=== PATIENT | male | born 1980 | race Caucasian/White ===

== ENCOUNTER 2021-02-13 06:33 | Emergency (ER) | payer SELFPAY ==
[2021-02-13 06:36] VITALS: BP 135/96; PULSE 103; RESP 20; TEMP 37; O2SAT 96; BMI 34.0
--- NOTE | 2021-02-13 06:44 | ECG_ITS ---
APPROVED REPORT Exam: Resting ECG HR:93 bpm ECG Measurements Heart Rate 93 AXES FL 106 P -3 QRSd 88 QRS 75 QT 348 T 5 QTc 432 Conclusion Sinus rhythm with short FL Otherwise normal ECG Electronically signed by : Guilherme Estevez MD 02/15/2021 08:47:23
[2021-02-13 06:50] VITALS: PULSE 94
--- NOTE | 2021-02-13 06:53 | XR_ITS ---
PROCEDURE: XR CHEST 2V CLINICAL HISTORY: COugh, SOA COMPARISON: CR CXR CHEST(2 VIEWS-NOT PORTABLE) from 05/28/[address] [facility] [address] CHEST W/O CONTRAST from 03/26/2016 CR CXR CHEST(2 VIEWS-NOT PORTABLE) from 03/26/2016 FINDINGS: The cardiomediastinal silhouette and pulmonary vascularity are within normal limits. The lungs are clear without infiltrates, suspicious nodules, or pleural effusions. No acute bony abnormalities. IMPRESSION: No acute findings. Dictated by: Aaron Gandhi MD 02/13/2021 07:59 Aaron Gandhi MD in [place] 02/13/2021 07:59
[2021-02-13 07:00] VITALS: BP 141/97; PULSE 95; O2SAT 94
[2021-02-13 07:06] LABS: Coronavirus 19, PCR Not Detected (NotDetected); Influenza A, PCR Not Detected (NotDetected); Influenza B, PCR Not Detected (NotDetected)
[2021-02-13 07:13] LABS: Basophils # 0.1 K/mm3 (0-0.2); Basophils % 0.4 % (0.1-2.0); Eosinophils # 0.1 K/mm3 (0.0-0.4); Eosinophils % 0.6 % (0.1-12.0); Hematocrit 46.2 % (42.0-52.0); Hemoglobin 15.7 g/dL (14.1-18.0); Lymphocytes # 2.2 K/mm3 (0.7-4.5); Lymphocytes % 17.6 % (10-50); Mean Corpuscular Hemoglobin 32.2 pg (27.0-31.2); Mean Corpuscular Volume 94.6 fl (80-94); Mean Platelet Volume 9.9 fl (7.4-10.4); Neutrophils # 9.3 K/mm3 (1.8-7.8); Neutrophils % 73.3 % (37.0-80.0); Platelet Count 254 K/mm3 (142-424); Red Blood Count 4.89 M/mm3 (4.60-6.20); White Blood Count 12.7 K/mm3 (4.8-10.8)
--- NOTE | 2021-02-13 07:16 | HMH.EDURI ---
ED Disposition Clinical Impression: COPD (chronic obstructive pulmonary disease) with acute bronchitis Disposition: Home, Self-Care Condition on Discharge: Good Instructions: DI for Acute Bronchitis Additional Instructions: fluids and use meds and see pcp for follow up Prescriptions: levoFLOXacin [Levaquin 500mg tab] 500 mg PO DAILY #7 tab Prescription Printed predniSONE [Prednisone 20mg Tab] 20 mg PO BID #10 tab Prescription Printed Referrals: Provider,Referral, [Primary Care Provider] - - Critical Care Critical Care Time: No Attestation: On 02/13/21, the high probability of a clinically significant, sudden or life threatening deterioration of the following system(s) required my full and direct attention, intervention and personal management. The time I documented below is in addition to time spent performing reported procedures but includes the following listed in this critical care notation. Medical Decision Making - Medical Records Medical records reviewed: Yes: I reviewed the patient's medical records. - Alberto Inquiry Pt receiving controlled substance: No Vital Signs: 02/13/21 06:36 02/13/21 06:50 02/13/21 07:00 Temperature 98.6 F Temperature Source Oral Pulse Rate 94 H 95 H Pulse Rate [Right Radial] 103 H Respiratory Rate 20 Blood Pressure 141/97 H Blood Pressure [Right Arm] 135/96 H Blood Pressure Mean 111 Blood Pressure Mean [Right Arm] 109 Blood Pressure Source [Right Arm] Automatic Cuff Blood Pressure Position [Right Arm] Sitting 02 Sat by Pulse Oximetry 96 94 L Oxygen Delivery Method Room Air - Lab Data Lab results reviewed: Yes: I reviewed the patient's lab results. Lab Results 02/13/21 06:52: SARS-CoV-2 (PCR) Not detected, Influenza A Untype (PCR) Not detected, Influenza Type B (PCR) Not detected 02/13/21 07:02: WBC 12.7 H, RBC 4.89, Hgb 15.7, Hct 46.2, MCV 94.6 H, MCH 32.2 H, MCHC 34.0, RDW 13.0, Plt Count 254, MPV 9.9, Neut % (Auto) 73.3, Lymph % (Auto) 17.6, [place] % (Auto) 8.0, Eos % (Auto) 0.6, Baso % (Auto) 0.4, Neut # (Auto) 9.3 H, Lymph # (Auto) 2.2, [place] # (Auto) 1.0, Eos # (Auto) 0.1, Baso # (Auto) 0.1, ESR 20 H 02/13/21 07:02: Sodium 136, Potassium 3.8, Chloride 101, Carbon Dioxide 26, Anion Gap 12.8, BUN 16, Creatinine 0.90, Estimated Creat Clear 158, Estimated GFR 93, Est GFR ( Amer) 112, Glucose 156 H, Calcium 9.5, Total Bilirubin 0.7, Direct Bilirubin 0.1, Conjugated Bilirubin 0.0, Indirect Bilirubin 0.6, Unconjugated Bilirubin 0.6, AST 26, ALT 26, Alkaline Phosphatase 88, Troponin I < 0.01, C-Reactive Protein 77.4 H, Total Protein 7.7, Albumin 4.5, Procalcitonin 0.074 Result diagrams: 02/13/21 07:02 02/13/21 07:02 Orders (Tests/Meds): ED MEDICATIONS Generic Name Dose Route Start Last Admin Trade Name Freq PRN Reason Stop Dose Admin Albuterol Sulfate 2 puffs 02/13/21 07:26 Albuterol-Hfa 90mcg/Puff Inhaler 8gm IH 03/15/21 07:25 Q4HP PRN Shortness Of Breath Ceftriaxone Sodium 1 gm/ 50 mls @ 100 mls/hr 02/13/21 07:30 02/13/21 07:30 Sodium Chloride IV 02/27/21 07:29 100 mls/hr Q24H MELLISSA Administration Discontinued Medications Generic Name Dose Route Start Last Admin Trade Name Freq PRN Reason Stop Dose Admin Albuterol/Ipratropium 3 ml 02/13/21 07:33 02/13/21 06:50 Ipratropium/Albuterol 3 Ml Neb IH 02/13/21 07:34 3 ml ONCE ONE Administration Furosemide 40 mg 02/13/21 07:25 02/13/21 07:30 Furosemide 40mg/4ml Vial IV 02/13/21 07:26 40 mg ONCE ONE Administration Sodium Chloride 1,000 mls @ 999 mls/hr 02/13/21 07:00 02/13/21 06:58 Sod Chlor 0.9% 1000ml Bag IV 02/13/21 08:00 999 mls/hr .Q1H1M MELLISSA Administration Methylprednisolone Sodium Succinate 125 mg 02/13/21 06:53 02/13/21 06:58 Methylprednisolone Sod Succ 125mg Vial IV 02/13/21 06:54 125 mg ONCE ONE Administration Miscellaneous 1 unit 02/13/21 07:26 Jimena/Femi 02/13/21
[2021-02-13 07:30] LABS: Alanine Aminotransferase 26 U/L (12-78); Albumin Level 4.5 g/dl (3.5-5.0); Alkaline Phosphatase 88 U/L (38-126); Anion Gap 12.8 mEq/L (5-15); Aspartate Amino Transferase 26 U/L (17-59); Bilirubin,Direct 0.1 mg/dl (0.0-0.4); Bilirubin,Indirect 0.6 mg/dL (0.0-0.9); Bilirubin,Total 0.7 mg/dl (0.2-1.3); Bilirubin,Unconjugated 0.6 mg/dL (0.0-1.1); Blood Urea Nitrogen 16 mg/dl (9-20); Calcium 9.5 mg/dl (8.4-10.2); Carbon Dioxide 26 mmol/L (22.0-30.0); Chloride 101 mmol/L (98-107); Creatinine Clearance Estimated 158 mL/min (50-200); Estimated Glomerular Filt Rate 93 ml/min (>60); GFR (African American) 112 ML/MIN (>60); Glucose 156 mg/dl (74-100); Potassium 3.8 mmoL/L (3.5-5.1); Sodium 136 mmol/L (136-145); Total Protein,Serum 7.7 g/dl (6.3-8.2)
[2021-02-13 07:35] LABS: C-Reactive Protein 77.4 mg/L (0-4)
[2021-02-13 07:49] LABS: Erythrocyte Sedimentation Rate 20 mm/hr (0-15); Troponin I < 0.01 ng/ml (0.00-0.034)
[2021-02-13 07:53] LABS: Procalcitonin 0.074 ng/mL (0.0-2.0)
[2021-02-13 08:40] VITALS: BP 153/100; PULSE 72; RESP 20; TEMP 36.9; O2SAT 93
== END 2021-02-13 08:42 | disposition home or self-care (01) ==
PROVIDERS: Emergency Provider Emergency Medicine
DX: J44.0 Chronic obstructive pulmonary disease with (acute) lower respiratory infection (principal); J20.9 Acute bronchitis, unspecified
CPT/HCPCS: 71046; 80048; 80076; 84145; 84484; 85025; 85651; 86140; 93005; 96365; 96367; 96375; 99283; C9803; U0003; U0005

== ENCOUNTER 2021-11-12 14:56 | Emergency (ER) | payer SELFPAY ==
[2021-11-12] VITALS (9 sets, daily range): BP systolic 146–159; BP diastolic 104–118; PULSE 72–93; RESP 15–20; TEMP 36.6–36.8; O2SAT 97–99; BMI 31.5
--- NOTE | 2021-11-12 14:56 | ECG_ITS ---
APPROVED REPORT Exam: Resting ECG HR:86 bpm ECG Measurements Heart Rate 86 AXES MS 134 P -13 QRSd 94 QRS 79 QT 335 T 78 QTc 378 Conclusion SINUS RHYTHM NONSPECIFIC T-WAVE ABNORMALITY BORDERLINE ECG UNCONFIRMED REPORT Electronically signed by : Guilherme Estevez MD 11/13/2021 14:47:00
--- NOTE | 2021-11-12 15:18 | XR_ITS ---
FINAL REPORT CLINICAL HISTORY: chest pain COMPARISON: February 13, 2021 FINDINGS: A single portable view of the chest was obtained. The heart size and pulmonary vascularity are within normal limits. The mediastinum is within normal limits. No acute pulmonary abnormality is identified. The bony thorax is intact. IMPRESSION: No active cardiopulmonary disease. Reviewed, Interpreted and Dictated by Blayne Carballo III, MD Transcribed by Domonique Delgado Authenticated and [facility]
--- NOTE | 2021-11-12 15:21 | HMH.EDGENADL ---
Discharge Plan Disposition Patient Disposition: Home, Self-Care Condition: Good Prescriptions Prescriptions: New naproxen 500 mg tablet 500 mg PO BID PRN (Reason: pain) Qty: 14 0RF No Action prednisone 20 MG tablet 20 mg PO BID Qty: 10 0RF levofloxacin 500 MG tablet 500 mg PO DAILY Qty: 7 0RF Referrals Follow up/Referrals: Provider,Referral, MD [Primary Care Provider] - See instructions Activity Restrictions/Add. Instructions Additional Instructions/Restrictions: You have been evaluated for chest pain, likely due to chest wall inflammation. Please follow-up closely with your primary care doctor. Take naproxen 500 mg twice daily as scheduled. Return to the emergency department at once for any new or worsening symptoms, chest pain, difficulty breathing, other concerns. Discharge ED Provider: Mercedez Hansen Adult HPI General Chief complaint: Chest Pain Stated complaint: chest pain Time Seen by Provider: 11/12/21 15:38 History of Present Illness HPI narrative: 41-year-old male presenting to the emergency department with chest pain. Pain is located in the midportion of his chest. Started this morning around 9 AM. Pain is worse with moving, leaning forward. Pain radiates from the front of his chest into his back. No recent illness, cough, shortness of breath, fevers, chills. He has never had pain like this before. No recent exertional chest pain. No medications prior to arrival. He smokes tobacco. Uses an inhaler as needed. Denies history of hypertension or coronary artery disease. Related Data Previous Rx's Medication Instructions Recorded levofloxacin 500 mg tablet 500 mg PO DAILY #7 tabs 02/13/21 prednisone 20 mg tablet 20 mg PO BID #10 tabs 02/13/21 naproxen 500 mg tablet 500 mg PO BID PRN pain #14 tabs 11/12/21 Allergies Allergy/AdvReac Type Severity Reaction Status Date / Time No Known Allergies Allergy Unverified 02/23/17 15:40 PFSH PFS Social History Smoking Status: Current every day smoker alcohol intake: never current occupational status: employed Travel in the last 8 weeks: None ROS Obtained: Yes All systems reviewed & no additional complaints except as documented Constitutional Constitutional: Denies chills, Denies fever(s) and Denies weakness ENT Ears, Nose, Mouth, and Throat: Denies sore throat and Denies throat swelling Cardiovascular Cardiovascular: Reports chest pain, Reports chest pain at rest, Denies dyspnea and Denies palpitations Respiratory Respiratory: Denies shortness of breath, Denies cough and Denies dyspnea Gastrointestinal Gastrointestingal: Denies abdominal pain, nausea or vomiting Musculoskeletal Musculoskeletal: Denies arthralgias, Reports back pain, Denies myalgias, Denies numbness and Denies tingling Integumentary/Breasts Skin/Breast: Denies rash Neurologic Neurologic: Denies numbness, Denies tingling and Denies weakness Endocrine Endocrine: Denies palpitations Allergic/Immunologic Allergic/Immunologic: Denies throat swelling Physical Exam General General appearance: alert and in no apparent distress Head Head exam: atraumatic and normocephalic ENT ENT exam: Present normal exam and normal oropharynx Neck Neck exam: Present normal inspection Chest Chest inspection: Present normal inspection and symmetric chest wall rise Respiratory Respiratory exam: Present normal lung sounds bilaterally; Absent respiratory distress or wheezes Cardiovascular Cardiovascular exam: Present regular rate and normal rhythm Abdominal Exam Abdominal exam: Present soft; Absent distention or tenderness Extremities Exam Extremities exam: Present normal inspection Neurological Exam Neurological exam: Present alert, oriented X3 and normal gait Psychiatric Psychiatric exam: Present normal affect and normal mood Skin Skin exam: Present warm and dry Medical Decision Making Medical Records Medical records reviewed: Yes I reviewed the patient's m
[2021-11-12 15:27] LABS: Basophils # 0.1 K/mm3 (0-0.2); Basophils % 1.4 % (0.1-2.0); Eosinophils # 0.2 K/mm3 (0.0-0.4); Eosinophils % 1.9 % (0.1-12.0); Hematocrit 46.1 % (42.0-52.0); Hemoglobin 14.9 g/dL (14.1-18.0); Lymphocytes # 2.6 K/mm3 (0.7-4.5); Lymphocytes % 25.9 % (10-50); Mean Corpuscular HGB Conc 32.3 g/dL (31.8-35.4); Mean Corpuscular Hemoglobin 31.6 pg (27.0-31.2); Mean Corpuscular Volume 97.8 fl (80-94); Mean Platelet Volume 10.4 fl (7.4-10.4); Monocytes # 0.8 K/mm3 (0.1-1.0); Monocytes % 7.9 % (1.7-9.3); Neutrophils # 6.2 K/mm3 (1.8-7.8); Neutrophils % 62.9 % (37.0-80.0); Platelet Count 230 K/mm3 (142-424); Red Blood Count 4.71 M/mm3 (4.60-6.20); Red Cell Distribution Width 13.2 % (11.5-17.5); White Blood Count 9.9 K/mm3 (4.8-10.8)
[2021-11-12 15:32] LABS: Alanine Aminotransferase 58 U/L (12-78); Albumin Level 4.7 g/dl (3.5-5.0); Albumin/Globulin Ratio 1.6 (1.1-1.8); Alkaline Phosphatase 93 U/L (38-126); Aspartate Amino Transferase 39 U/L (17-59); Bilirubin,Total 0.5 mg/dl (0.2-1.3); Blood Urea Nitrogen 16 mg/dl (9-20); Calcium 9.4 mg/dl (8.4-10.2); Carbon Dioxide 26 mmol/L (22.0-30.0); Chloride 105 mmol/L (98-107); Creatinine Clearance Estimated 168 mL/min (50-200); Estimated Glomerular Filt Rate 106 ml/min (>60); GFR (African American) 128 ML/MIN (>60); Glucose 87 mg/dl (74-100); Sodium 140 mmol/L (136-145); Total Protein,Serum 7.7 g/dl (6.3-8.2)
[2021-11-12 15:47] LABS: Troponin I < 0.01 ng/ml (0.00-0.034)
--- NOTE | 2021-11-12 17:13 | PC.NURSE ---
REPEAT TROP CAN BE A [address] ASHLEY [facility] AWARE
[2021-11-12 18:16] LABS: Troponin I < 0.01 ng/ml (0.00-0.034)
== END 2021-11-12 18:55 | disposition home or self-care (01) ==
PROVIDERS: Emergency Provider Emergency Medicine
DX: R07.9 Chest pain, unspecified (principal); F17.210 Nicotine dependence, cigarettes, uncomplicated; Z79.1 Long term (current) use of non-steroidal anti-inflammatories (NSAID); Z79.52 Long term (current) use of systemic steroids; Z79.899 Other long term (current) drug therapy
CPT/HCPCS: 36415; 71045; 80053; 84484; 85025; 85378; 93005; 96374; 99285